=== PATIENT | female | born 1965 | race Caucasian/White ===

== ENCOUNTER 2022-01-10 07:21 | Outpatient (CLI) | payer OTHER | END 2022-01-10 07:26 | disposition home or self-care (01) | LOC: NUCLEAR 07:21 | PROVIDERS: ATTEND Internal Medicine Cardiovascular Disease | DX: I20.8 Other forms of angina pectoris (principal); I11.9 Hypertensive heart disease without heart failure; R06.2 Wheezing | CPT/HCPCS: 78452; 93017; A9500; J0153 ==